=== PATIENT | male | born 1940 | race Caucasian/White ===

== ENCOUNTER → 2018-05-28 | Outpatient (CLI) | payer MEDICARE ==
--- NOTE | 2018-05-28 23:29 | MR ---
EXAMINATION TYPE: MR brain wo con DATE OF EXAM: 05/28/2018 COMPARISON: NONE HISTORY: 77-year-old male CVA, memory loss TECHNIQUE: Multiplanar, multisequence images of the brain and brainstem were acquired without IV con trast. Diffusion weighted imaging is performed. FINDINGS: No evidence for acute infarction, hemorrhage, mass, mass effect, midline shift, herniation, effacemen t of basal cisterns, or extra-axial fluid collection. The ventricles and sulci are age-appropriate. Mild to moderate generalized supratentorial volume loss . Major intracranial flow voids are intact. T2/FLAIR weighted sequences show moderate scattered burden of bright white matter change primarily in the subcortical and deep white matter regions of both cerebral hemispheres. There are some focal cor tical based right signal change in the posterior right parietal lobe suggesting an area of gliosis re lating to old cortical infarct or trauma. Midline structures demonstrate normal morphology. The craniocervical junction is normal. There is mild mucosal thickening throughout the paranasal sinuses. Globes are intact. IMPRESSION: 1. Hyut-en-vzoqbjcr cerebral atrophy. There is moderate scattered burden of T2 bright white matter ch ryley, nonspecific, likely relating to changes of chronic small vessel ischemic disease. 2. Small area of gliosis in the posterior right parietal cortex suggesting sequela of prior vascular or traumatic insult. 3. Mild chronic pansinus disease.
== END | disposition home or self-care (01) ==
LOC: RADMRIMAIN 12:22
PROVIDERS: ATTEND Psychiatry & Neurology Neurology
DX: G31.9 Degenerative disease of nervous system, unspecified (principal); R90.82 White matter disease, unspecified; G93.89 Other specified disorders of brain
CPT/HCPCS: 70551

== ENCOUNTER → 2018-06-21 | Outpatient (CLI) | payer MEDICARE ==
--- NOTE | 2018-06-23 11:36 | CT ---
EXAMINATION TYPE: CT angio head neck DATE OF EXAM: 06/21/2018 HISTORY: Memory loss and occasional confusion COMPARISON: None CT DLP: 333.7 mGycm. Automated Exposure Control for Dose Reduction was Utilized. TECHNIQUE: CTA scan of the neck is performed with IV Contrast, patient injected with 65 mL of Isovue 370, axial images are obtained, coronal and sagittal reformatted images are reviewed. Three-D recons tructed images are created on an independent workstation and reviewed. FINDINGS: Right carotid artery: There is mild atherosclerotic plaque at the origin of the common root tid artery. There is mild atherosclerotic plaque involving the carotid bifurcation and proximal right ICA. No significant stenosis. Left carotid artery: Carotid bifurcation is patent with no significant plaque or stenosis. There is mild atherosclerotic plaque of the visualized portions of the aorta. Hypertrophic and degenerative change of the vertebral column. Vertebral arteries are patent and fairly symmetric in size. Changes of chronic sinusitis noted. Intracranial vasculature is patent. No sizable aneurysm or vascular malformation. There is generalized degenerative change with nonspecific white matter changes most typical remote mi crovascular ischemia. IMPRESSION: 1. No significant hemodynamic stenosis of the carotid bifurcations. 2. No sizable aneurysm. 3. Degenerative and nonspecific white matter changes most typical remote microvascular ischemia.
== END | disposition home or self-care (01) ==
LOC: RADCTMAIN 15:28
PROVIDERS: ATTEND Psychiatry & Neurology Neurology
DX: R90.82 White matter disease, unspecified (principal)
CPT/HCPCS: 82565; 84520; 70496; 70498; Q9967

== ENCOUNTER → 2019-02-06 | Outpatient (CLI) | payer MEDICARE ==
[2019-02-06 18:40] LABS: Anion Gap 6.8 mmol/L (4.00-12.00); Calcium 10.2 mg/dL (8.7-10.3); Carbon Dioxide 28.2 mmol/L (21.6-31.8); Potassium 4.2 mmol/L (3.5-5.5)
[2019-02-06 18:47] LABS: T4, Free (Free Thyroxine) 1.3 ng/dL (0.80-1.80)
[2019-02-07 12:49] LABS: Lyme IgG/IgM 0.07 Index
== END | disposition home or self-care (01) ==
LOC: LABWHC1 12:57
PROVIDERS: ATTEND Psychiatry & Neurology Neurology
DX: R41.3 Other amnesia (principal)
CPT/HCPCS: 36415; 80048; 82607; 82747; 84439; 84443; 85652; 86618

== ENCOUNTER 2019-05-21 12:26 | Emergency (ER) | payer MEDICARE ==
[2019-05-21] MEDS ORDERED: SODIUM CHLORIDE 0.9% 1,000 ML IV ONE (12:41)
--- NOTE | 2019-05-21 12:44 | ED ---
Altered Mental Status HPI - General Chief Complaint: Altered Mental Status Stated Complaint: Confusion Time Seen by Provider: 05/21/19 12:41 Source: patient, family Mode of arrival: ambulatory Limitations: no limitations - Related Data Home Medications Medication Instructions Recorded Confirmed Atorvastatin [Lipitor] 40 mg PO HS 05/21/19 05/21/19 Fluticasone Nasal [place] [Flonase 1 spr EA NOSTRIL DAILY 05/21/19 05/21/19 Nasal [place]] Fluticasone Propionate [Flovent 2 puff INHALATION RT-BID 05/21/19 05/21/19 Hfa 44 mcg] Losartan Potassium 50 mg PO DAILY 05/21/19 05/21/19 Metoprolol Succinate [Toprol XL] 25 mg PO HS 05/21/19 05/21/19 [employer] Fatty Acids/Fish Oil [Fish 1 cap PO DAILY 05/21/19 05/21/19 Oil 1,000 mg Softgel] Warfarin [Coumadin] 1.25 mg PO SUTUWEFRSA 05/21/19 05/21/19 Allergies Allergy/AdvReac Type Severity Reaction Status Date / Time No Known Allergies Allergy Verified 05/21/19 13:45 Review of Systems ROS Statement: Those systems with pertinent positive or pertinent negative responses have been documented in the HPI. ROS Other: All systems not noted in ROS Statement are negative. Past Medical History Past Medical History: CVA/TIA, Hypertension, Myocardial Infarction (ND) Additional Past Medical History / Comment(s): Renal function tests. TIA's History of Any Multi-Drug Resistant Organisms: None Reported Past Surgical History: Heart Catheterization With Stent, Orthopedic Surgery Additional Past Surgical History / Comment(s): Stent 2001, cardioversion 2009 Past Psychological History: No Psychological Hx Reported Smoking Status: Never smoker Past Alcohol Use History: Rare Past Drug Use History: None Reported General Exam Limitations: no limitations Course Vital Signs 05/21/19 05/21/19 12:30 12:45 Temperature 97.8 F 98.6 F Pulse Rate 67 68 Respiratory 19 18 Rate Blood Pressure 138/94 128/78 O2 Sat by Pulse 98 98 Oximetry - Reevaluation(s) Reevaluation #1: 05/21/19 14:59medical record is reviewed Reevaluation #2: 05/21/19 14:59 patient has resolution of symptoms Medical Decision Making - Medical Decision Making 78 male to the ED for evaluation of short term memory loss, history of TIA, symptoms improved currently so now with recurrent TIA, will be given aspirin and folow with cardiologt and neurology - Lab Data Result diagrams: 05/21/19 12:45 05/21/19 12:45 Lab Results 05/21/19 05/21/19 05/21/19 Range/Units 12:45 12:45 12:45 WBC 7.3 (3.8-10.6) k/uL RBC 4.97 (4.30-5.90) m/uL Hgb 16.4 (13.0-17.5) gm/dL Hct 49.8 (39.0-53.0) % MCV 100.2 H (80.0-100.0) fL MCH 33.0 (25.0-35.0) pg MCHC 32.9 (31.0-37.0) g/dL RDW 13.8 (11.5-15.5) % Plt Count 185 (150-450) k/uL Neutrophils % 68 % Lymphocytes % 16 % Monocytes % 9 % Eosinophils % 4 % Basophils % 1 % Neutrophils # 4.9 (1.3-7.7) k/uL Lymphocytes # 1.1 (1.0-4.8) k/uL Monocytes # 0.7 (0-1.0) k/uL Eosinophils # 0.3 (0-0.7) k/uL Basophils # 0.1 (0-0.2) k/uL Macrocytosis Slight PT 13.6 H (9.0-12.0) sec INR 1.3 H (<1.2) APTT 27.5 (22.0-30.0) sec Sodium 139 (137-145) mmol/L Potassium 4.7 (3.5-5.1) mmol/L Chloride 106 (98-107) mmol/L Carbon Dioxide 21 L (22-30) mmol/L Anion Gap 12 mmol/L BUN 17 (9-20) mg/dL Creatinine 0.96 (0.66-1.25) mg/dL Est GFR (CKD-EPI)AfAm 88 (>60 ml/min/1.73 sqM) Est GFR (CKD-EPI)NonAf 77 (>60 ml/min/1.73 sqM) Glucose 95 (74-99) mg/dL POC Glucose (mg/dL) (75-99) mg/dL POC Glu Tobacco Grader ID Calcium 9.7 (8.4-10.2) mg/dL Phosphorus 3.7 (2.5-4.5) mg/dL Magnesium 2.0 (1.6-2.3) mg/dL Total Bilirubin 1.5 H (0.2-1.3) mg/dL AST 59 (17-59) U/L ALT 50 (21-72) U/L Alkaline Phosphatase 67 (38-126) U/L Creatine Kinase 259 H (55-170) U/L Troponin I (0.000-0.034) ng/mL Total Protein 7.2 (6.3-8.2) g/dL Albumin 4.2 (3.5-5.0) g/dL Urine Color Urine Appearance (Clear) Urine pH (5.0-8.0) Ur Specific [place] (1.001-1.035) Urine Protein (Negative) Urine Glucose (UA) (Negative) Urine Ketones (Negative) Urine Blood (Negative) Urine Nitrite (Negative) Urine Bilirubin (Negative) Urine Urobilinogen (<2.0) mg/dL Ur Leukocyte Esterase (Negative) Urine Opiates Screen (NotDetected) Ur Oxycodone Screen (NotDetected) Urine Methadone Screen (NotDetected) Ur Propoxyphene Screen (NotDetected) Ur Barbiturates Screen (NotDetected) U Tricyclic Antidepress (NotDetected) Ur Phencyclidine Scrn (NotDetected) Ur Amphetamines Screen (NotDetected) U Methamphetamines Scrn (NotDetected) U Benzodiazepines Scrn (NotDetected) Urine Cocaine Screen (NotDetected) U Marijuana (THC) Screen (NotDetected) 05/21/19 05/21/19 05/21/19 Range/Units 12:45 12:49 14:00 WBC (3.8-10.6) k/uL RBC (4.30-5.90) m/uL Hgb (13.0-17.5) gm/dL Hct (39.0-53.0) % MCV (80.0-100.0) fL MCH (25.0-35.0) pg MCHC (31.0-37.0) g/dL RDW (11.5-15.5) % Plt Count (150-450) k/uL Neutrophils % % Lymphocytes % % Monocytes % % Eosinophils % % Basophils % % Neutrophils # (1.3-7.7) k/uL Lymphocytes # (1.0-4.8) k/uL Monocytes # (0-1.0) k/uL Eosinophils # (0-0.7) k/uL Basophils # (0-0.2) k/uL Macrocytosis PT (9.0-12.0) sec INR (<1.2) APTT (22.0-30.0) sec Sodium (137-145) mmol/L Potassium (3.5-5.1) mmol/L Chloride (98-107) mmol/L Carbon Dioxide (22-30) mmol/L Anion Gap mmol/L BUN (9-20) mg/dL Creatinine (0.66-1.25) mg/dL Est GFR (CKD-EPI)AfAm (>60 ml/min/1.73 sqM) Est GFR (CKD-EPI)NonAf (>60 ml/min/1.73 sqM) Glucose (74-99) mg/dL POC Glucose (mg/dL) 91 (75-99) mg/dL POC Glu Tobacco Grader ID Wilbert Barrios Calcium (8.4-10.2) mg/dL Phosphorus (2.5-4.5) mg/dL Magnesium (1.6-2.3) mg/dL Total Bilirubin (0.2-1.3) mg/dL AST (17-59) U/L ALT (21-72) U/L Alkaline Phosphatase (38-126) U/L Creatine Kinase (55-170) U/L Troponin I <0.012 (0.000-0.034) ng/mL Total Protein (6.3-8.2) g/dL Albumin (3.5-5.0) g/dL Urine Color Yellow Urine Appearance Clear (Clear) Urine pH 5.5 (5.0-8.0) Ur Specific [place] 1.023 (1.001-1.035) Urine Protein Negative (Negative) Urine Glucose (UA) Negative (Negative) Urine Ketones Negative (Negative) Urine Blood Negative (Negative) Urine Nitrite Negative (Negative) Urine Bilirubin Negative (Negative) Urine Urobilinogen <2.0 (<2.0) mg/dL Ur Leukocyte Esterase Negative (Negative) Urine Opiates Screen Not Detected (NotDetected) Ur Oxycodone Screen Not Detected (NotDetected) Urine Methadone Screen Not Detected (NotDetected) Ur Propoxyphene Screen Not Detected (NotDetected) Ur Barbiturates Screen Not Detected (NotDetected) U Tricyclic Antidepress Not Detected (NotDetected) Ur Phencyclidine Scrn Not Detected (NotDetected) Ur Amphetamines Screen Not Detected (NotDetected) U Methamphetamines Scrn Not Detected (NotDetected) U Benzodiazepines Scrn Not Detected (NotDetected) Urine Cocaine Screen Not Detected (NotDetected) U Marijuana (THC) Screen Not Detected (NotDetected) - EKG Data -: EKG Interpreted by Me (EKG shows A. fib rate of 70, QRS 80, QTC 436) - Radiology Data Radiology results: report reviewed (CT brain is negative for acute disaes), image reviewed Disposition Clinical Impression: TIA (transient ischemic attack) Disposition: HOME SELF-CARE Instructions (If sedation given, give patient instructions): Transient Ischemic Attack (ED) Is patient prescribed a controlled substance at d/c from ED?: No Referrals: Regan Cruz MD [Primary Care Provider] - 1-2 days
[2019-05-21 12:52] LABS: Glucose,Whole Blood 91 mg/dL (75-99)
[2019-05-21 13:15] LABS: Basophils # (A) 0.1 k/uL (0-0.2); Basophils % (A) 1 %; Eosinophils # (A) 0.3 k/uL (0-0.7); Eosinophils % (A) 4 %; HCT 49.8 % (39.0-53.0); HGB 16.4 gm/dL (13.0-17.5); Lymphocytes # (A) 1.1 k/uL (1.0-4.8); Lymphocytes % (A) 16 %; MCHC 32.9 g/dL (31.0-37.0); MCV 100.2 fL (80.0-100.0); Macrocytosis Slight; Mean Platelet Volume 8.1; Monocytes # (A) 0.7 k/uL (0-1.0); Monocytes % (A) 9 %; Neutrophils # (A) 4.9 k/uL (1.3-7.7); Neutrophils % (A) 68 %; Platelet Count 185 k/uL (150-450); RBC 4.97 m/uL (4.30-5.90); RDW 13.8 % (11.5-15.5); WBC 7.3 k/uL (3.8-10.6)
[2019-05-21 13:24] LABS: INR 1.3 (<1.2); Partial Thromboplastin Time 27.5 sec (22.0-30.0); Prothrombin Time 13.6 sec (9.0-12.0)
--- NOTE | 2019-05-21 13:29 | XR ---
EXAMINATION TYPE: XR chest 2V DATE OF EXAM: 05/21/2019 COMPARISON: 08/16/2010 INDICATION: Altered mental status history of heart attack TECHNIQUE: Frontal and lateral views of the chest are obtained. FINDINGS: The heart size is normal. The pulmonary vasculature is normal. The lungs are clear. IMPRESSION: 1. No acute pulmonary process.
[2019-05-21 13:34] LABS: Albumin 4.2 g/dL (3.5-5.0); Calcium 9.7 mg/dL (8.4-10.2); Phosphorus 3.7 mg/dL (2.5-4.5); Total Bilirubin 1.5 mg/dL (0.2-1.3); Total Protein 7.2 g/dL (6.3-8.2)
[2019-05-21 13:36] LABS: Potassium 4.7 mmol/L (3.5-5.1)
--- NOTE | 2019-05-21 13:37 | CT ---
EXAMINATION TYPE: CT brain wo con DATE OF EXAM: 05/21/2019 COMPARISON: None HISTORY: confusion CT DLP: 1099.[address] of the brain was performed. The ventricles, basal cisterns and sulci overlying the cerebral convexities demonstrate mild enlargem ent. There is no evidence for intracranial hemorrhage or sulcal effacement. There is decreased attenuation about the periventricular white matter and deep white matter of both c erebral hemispheres, compatible with chronic small vessel ischemia. Differential diagnosis does inclu de demyelination. No mass effects are seen.No midline shift. Osseous calvarium is intact. If symptoms persist consider MRI. IMPRESSION: 1. Age related atrophic and chronic small vessel ischemic change without acute intracranial process s een at this time.
[2019-05-21 14:14] LABS: Appearance,Urine Clear (Clear); Bilirubin,Urine Negative (Negative); Blood,Urine Negative (Negative); Color,Urine Yellow; Glucose,Urine (UA) Negative (Negative); Ketones,Urine Negative (Negative); Leukocyte Esterase,Urine Negative (Negative); Nitrite,Urine Negative (Negative); PH, Urine 5.5 (5.0-8.0); Protein,Urine Negative (Negative); Specific Gravity,Urine 1.023 (1.001-1.035); Urobilinogen,Urine <2.0 mg/dL (<2.0)
[2019-05-21 14:21] LABS: Amphetamine Screen,Urine Not Detected (NotDetected); Barbiturate Screen,Urine Not Detected (NotDetected); Benzodiazepines Screen,Urine Not Detected (NotDetected); Cocaine Screen,Urine Not Detected (NotDetected); Methadone Screen, Urine Not Detected (NotDetected); Opiate Screen,Urine Not Detected (NotDetected); Oxycodone Screen, Urine Not Detected (NotDetected); Phencyclidine Screen,Urine Not Detected (NotDetected); Tricyclic Antidepressant,Urine Not Detected (NotDetected); Urn Cannabinoid Scrn Not Detected (NotDetected)
[2019-05-21 15:33] VITALS: BP 133/80; PULSE 62; RESP 18; TEMP 98
--- NOTE | 2019-05-27 16:21 | ED ---
Altered Mental Status HPI - General Chief Complaint: Altered Mental Status Stated Complaint: Confusion Time Seen by Provider: 05/21/19 12:41 Source: patient, family, RN notes reviewed, old records reviewed Mode of arrival: ambulatory Limitations: no limitations - History of Present Illness Initial Comments: This is addendum regarding incomplete prior note This is a 78-year-old male the ER for evaluation. Patient has history of TIA and coming in with likely recurrent TIA. Patient has some significant short- term memory loss following golfing today. Patient members none of his golf round. He also got lost on the way home. No history of dementia. No trauma. No recent travel history no sick contacts no other significant symptoms. Patient currently is asymptomatic denies neurological deficit no weakness no sensation loss. History of exact same symptoms in the past MD Complaint: altered mental status, confusion (Memory loss short-term) -: days(s) Severity: moderate Consistency of Symptoms: unknown (Improving currently) Associated Symptoms: denies other symptoms - Related Data Home Medications Medication Instructions Recorded Confirmed Atorvastatin [Lipitor] 40 mg PO HS 05/21/19 05/21/19 Fluticasone Nasal [place] [Flonase 1 spr EA NOSTRIL DAILY 05/21/19 05/21/19 Nasal [place]] Fluticasone Propionate [Flovent 2 puff INHALATION RT-BID 05/21/19 05/21/19 Hfa 44 mcg] Losartan Potassium 50 mg PO DAILY 05/21/19 05/21/19 Metoprolol Succinate [Toprol XL] 25 mg PO HS 05/21/19 05/21/19 [place]-3 Fatty Acids/Fish Oil [Fish 1 cap PO DAILY 05/21/19 05/21/19 Oil 1,000 mg Softgel] Warfarin [Coumadin] 1.25 mg PO SUTUWEFRSA 05/21/19 05/21/19 Allergies Allergy/AdvReac Type Severity Reaction Status Date / Time No Known Allergies Allergy Verified 05/21/19 13:45 Review of Systems ROS Statement: Those systems with pertinent positive or pertinent negative responses have been documented in the HPI. ROS Other: All systems not noted in ROS Statement are negative. Past Medical History Past Medical History: CVA/TIA, Hypertension, Myocardial Infarction (ID) Additional Past Medical History / Comment(s): Renal function tests. TIA's History of Any Multi-Drug Resistant Organisms: None Reported Past Surgical History: Heart Catheterization With Stent, Orthopedic Surgery Additional Past Surgical History / Comment(s): Stent 2002, cardioversion 2009 Past Psychological History: No Psychological Hx Reported Smoking Status: Never smoker Past Alcohol Use History: Rare Past Drug Use History: None Reported General Exam - General Exam Comments Initial Comments: NIH of 0 Limitations: no limitations General appearance: alert, in no apparent distress Head exam: Present: atraumatic, normocephalic, normal inspection Eye exam: Present: normal appearance, PERRL, EOMI. Absent: scleral icterus, conjunctival injection, periorbital swelling ENT exam: Present: normal exam, mucous membranes moist Neck exam: Present: normal inspection. Absent: tenderness, meningismus, lymphadenopathy Respiratory exam: Present: normal lung sounds bilaterally. Absent: respiratory distress, wheezes, rales, rhonchi, stridor Cardiovascular Exam: Present: regular rate, normal rhythm, normal heart sounds. Absent: systolic murmur, diastolic murmur, rubs, gallop, clicks GI/Abdominal exam: Present: soft, normal bowel sounds. Absent: distended, tenderness, guarding, rebound, rigid Extremities exam: Present: normal inspection, full ROM, normal capillary refill. Absent: tenderness, pedal edema, joint swelling, calf tenderness Back exam: Present: normal inspection Neurological exam: Present: alert, oriented X3, CN II-XII intact Psychiatric exam: Present: normal affect, normal mood Skin exam: Present: warm, dry, intact, normal color. Absent: rash Course Vital Signs 05/21/19 05/21/19 05/21/19 12:30 12:45 13:45 Temperature 97.8 F 98.6 F 98.2 F Pulse Rate 67 68 65 Respiratory 19 18 18 Rate Blood Pressure 138/94 128/78 136/78 O2 Sat by Pulse 98 98 98 Oximetry 05/21/19 05/21/19 14:45 15:20 Temperature 98.2 F 98.0 F Pulse Rate 61 62 Respiratory 16 18 Rate Blood Pressure 130/80 133/80 O2 Sat by Pulse 98 98 Oximetry Medical Decision Making - Medical Decision Making 78 male to be admitted for evaluation, patient refusing to be admitted for short-term memory loss and JOE he states his memory is working out agrees will follow-up with his neurologist - Lab Data Result diagrams: 05/21/19 12:45 05/21/19 12:45 Lab Results 05/21/19 05/21/19 05/21/19 Range/Units 12:45 12:45 12:45 WBC 7.3 (3.8-10.6) k/uL RBC 4.97 (4.30-5.90) m/uL Hgb 16.4 (13.0-17.5) gm/dL Hct 49.8 (39.0-53.0) % MCV 100.2 H (80.0-100.0) fL MCH 33.0 (25.0-35.0) pg MCHC 32.9 (31.0-37.0) g/dL RDW 13.8 (11.5-15.5) % Plt Count 185 (150-450) k/uL Neutrophils % 68 % Lymphocytes % 16 % Monocytes % 9 % Eosinophils % 4 % Basophils % 1 % Neutrophils # 4.9 (1.3-7.7) k/uL Lymphocytes # 1.1 (1.0-4.8) k/uL Monocytes # 0.7 (0-1.0) k/uL Eosinophils # 0.3 (0-0.7) k/uL Basophils # 0.1 (0-0.2) k/uL Macrocytosis Slight PT 13.6 H (9.0-12.0) sec INR 1.3 H (<1.2) APTT 27.5 (22.0-30.0) sec Sodium 139 (137-145) mmol/L Potassium 4.7 (3.5-5.1) mmol/L Chloride 106 (98-107) mmol/L Carbon Dioxide 21 L (22-30) mmol/L Anion Gap 12 mmol/L BUN 17 (9-20) mg/dL Creatinine 0.96 (0.66-1.25) mg/dL Est GFR (CKD-EPI)AfAm 88 (>60 ml/min/1.73 sqM) Est GFR (CKD-EPI)NonAf 77 (>60 ml/min/1.73 sqM) Glucose 95 (74-99) mg/dL POC Glucose (mg/dL) (75-99) mg/dL POC Glu Principal Clerk Typist ID Calcium 9.7 (8.4-10.2) mg/dL Phosphorus 3.7 (2.5-4.5) mg/dL Magnesium 2.0 (1.6-2.3) mg/dL Total Bilirubin 1.5 H (0.2-1.3) mg/dL AST 59 (17-59) U/L ALT 50 (21-72) U/L Alkaline Phosphatase 67 (38-126) U/L Creatine Kinase 259 H (55-170) U/L Troponin I (0.000-0.034) ng/mL Total Protein 7.2 (6.3-8.2) g/dL Albumin 4.2 (3.5-5.0) g/dL Urine Color Urine Appearance (Clear) Urine pH (5.0-8.0) Ur Specific [place] (1.001-1.035) Urine Protein (Negative) Urine Glucose (UA) (Negative) Urine Ketones (Negative) Urine Blood (Negative) Urine Nitrite (Negative) Urine Bilirubin (Negative) Urine Urobilinogen (<2.0) mg/dL Ur Leukocyte Esterase (Negative) Urine Opiates Screen (NotDetected) Ur Oxycodone Screen (NotDetected) Urine Methadone Screen (NotDetected) Ur Propoxyphene Screen (NotDetected) Ur Barbiturates Screen (NotDetected) U Tricyclic Antidepress (NotDetected) Ur Phencyclidine Scrn (NotDetected) Ur Amphetamines Screen (NotDetected) U Methamphetamines Scrn (NotDetected) U Benzodiazepines Scrn (NotDetected) Urine Cocaine Screen (NotDetected) U Marijuana (THC) Screen (NotDetected) 05/21/19 05/21/19 05/21/19 Range/Units 12:45 12:49 14:00 WBC (3.8-10.6) k/uL RBC (4.30-5.90) m/uL Hgb (13.0-17.5) gm/dL Hct (39.0-53.0) % MCV (80.0-100.0) fL MCH (25.0-35.0) pg MCHC (31.0-37.0) g/dL RDW (11.5-15.5) % Plt Count (150-450) k/uL Neutrophils % % Lymphocytes % % Monocytes % % Eosinophils % % Basophils % % Neutrophils # (1.3-7.7) k/uL Lymphocytes # (1.0-4.8) k/uL Monocytes # (0-1.0) k/uL Eosinophils # (0-0.7) k/uL Basophils # (0-0.2) k/uL Macrocytosis PT (9.0-12.0) sec INR (<1.2) APTT (22.0-30.0) sec Sodium (137-145) mmol/L Potassium (3.5-5.1) mmol/L Chloride (98-107) mmol/L Carbon Dioxide (22-30) mmol/L Anion Gap mmol/L BUN (9-20) mg/dL Creatinine (0.66-1.25) mg/dL Est GFR (CKD-EPI)AfAm (>60 ml/min/1.73 sqM) Est GFR (CKD-EPI)NonAf (>60 ml/min/1.73 sqM) Glucose (74-99) mg/dL POC Glucose (mg/dL) 91 (75-99) mg/dL POC Glu Principal Clerk Typist ID Wilbert Barrios Calcium (8.4-10.2) mg/dL Phosphorus (2.5-4.5) mg/dL Magnesium (1.6-2.3) mg/dL Total Bilirubin (0.2-1.3) mg/dL AST (17-59) U/L ALT (21-72) U/L Alkaline Phosphatase (38-126) U/L Creatine Kinase (55-170) U/L Troponin I <0.012 (0.000-0.034) ng/mL Total Protein (6.3-8.2) g/dL Albumin (3.5-5.0) g/dL Urine Color Yellow Urine Appearance Clear (Clear) Urine pH 5.5 (5.0-8.0) Ur Specific [place] 1.023 (1.001-1.035) Urine Protein Negative (Negative) Urine Glucose (UA) Negative (Negative) Urine Ketones Negative (Negative) Urine Blood Negative (Negative) Urine Nitrite Negative (Negative) Urine Bilirubin Negative (Negative) Urine Urobilinogen <2.0 (<2.0) mg/dL Ur Leukocyte Esterase Negative (Negative) Urine Opiates Screen Not Detected (NotDetected) Ur Oxycodone Screen Not Detected (NotDetected) Urine Methadone Screen Not Detected (NotDetected) Ur Propoxyphene Screen Not Detected (NotDetected) Ur Barbiturates Screen Not Detected (NotDetected) U Tricyclic Antidepress Not Detected (NotDetected) Ur Phencyclidine Scrn Not Detected (NotDetected) Ur Amphetamines Screen Not Detected (NotDetected) U Methamphetamines Scrn Not Detected (NotDetected) U Benzodiazepines Scrn Not Detected (NotDetected) Urine Cocaine Screen Not Detected (NotDetected) U Marijuana (THC) Screen Not Detected (NotDetected) - Radiology Data Radiology results: report reviewed (CT brain negative for acute disease), image reviewed Disposition Clinical Impression: TIA (transient ischemic attack) Disposition: HOME SELF-CARE Instructions (If sedation given, give patient instructions): Transient Ischemic Attack (ED) Is patient prescribed a controlled substance at d/c from ED?: No Referrals: Regan Cruz MD [Primary Care Provider] - 1-2 days
== END 2019-05-21 15:20 | disposition home or self-care (01) ==
LOC: EC 12:26
DX: G45.9 Transient cerebral ischemic attack, unspecified (principal); I10 Essential (primary) hypertension; I25.2 Old myocardial infarction; Z79.01 Long term (current) use of anticoagulants; Z79.899 Other long term (current) drug therapy; Z53.29 Procedure and treatment not carried out because of patient's decision for other reasons; Z95.5 Presence of coronary angioplasty implant and graft
CPT/HCPCS: 36415; 70450; 71046; 80053; 80306; 81003; 82550; 83735; 84100; 84484; 85025; 85610; 85730; 93005; 96360; 96361; 99285

== ENCOUNTER → 2021-07-10 | Outpatient (CLI) | payer MEDICARE ==
--- NOTE | 2021-07-11 03:45 | MR ---
EXAMINATION TYPE: MR brain wo con DATE OF EXAM: 07/10/2021 COMPARISON: 05/28/2018 HISTORY: Memory loss. Multiplanar multiecho imaging of the brain without contrast. There is cerebral cortical atrophy. There is no mass effect nor midline shift. There is no sign of in tracranial hemorrhage. Diffusion images show no evidence of an acute infarct. On the T2 and FLAIR images there are scattered multiple foci of increased signal in the white matter in both cerebral hemispheres mainly at the lewis-white matter junction. These measure millimeters and total number is approximately 25 The brainstem is intact. Corpus callosum is intact. The sella turcica is intact. There is no evidence of orbital mass. There is some mild mucosal thickening in the ethmoid and frontal sinuses. IMPRESSION: White matter signal changes in both cerebral hemispheres consistent with chronic small vessel ischemi a and not a significant progression compared to old exam. Cerebral atrophy. There is improvement in the frontal and ethmoid sinusitis compared to old exam. There is improvement in the maxillary sinusitis.
== END | disposition home or self-care (01) ==
LOC: RADMRIMAIN 12:43
PROVIDERS: ATTEND Psychiatry & Neurology Neurology
DX: I67.82 Cerebral ischemia (principal); J32.0 Chronic maxillary sinusitis
CPT/HCPCS: 70551

== ENCOUNTER 2022-03-31 10:42 | Emergency (ER) | payer MEDICARE ==
[2022-03-31 10:54] VITALS: RESP 18
[2022-03-31] MEDS ORDERED: HUMAN PROTHROMBIN COMPLX 500 UNIT/16 ML VIAL IV ONE (11:00)
--- NOTE | 2022-03-31 12:32 | ED ---
General Adult HPI - General Source: patient, family Mode of arrival: wheelchair Limitations: no limitations <Dominique Warren - Last Filed: 03/31/22 17:46> <WittCarlose - Last Filed: 04/01/22 14:46> - General Chief complaint: Dizziness Stated complaint: poss TIA yesterday - History of Present Illness Initial comments: Patient is an 81-year-old male presents to the emergency room with his . His reports that the patient was acting very strangely yesterday consequently she called EMS who advised that the patient should go to the emergency room however he was adamant that he did not want to go to the emergency room. His reports that he slept all day long and this morning he was still not back to what she feels is his baseline which is slightly confused but overall alert. She reports that he is not following his his normal routine and does not know if that is affecting his confusion. 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 Christian for evaluation of the symptoms. He has also had multiple CT scans and MRIs over the last few years to monitor for metastatic disease as he has a history of lung cancer. Initially this morning he was complaining of some dizziness and wobbliness in his legs however at time of presentation he denied any dizziness and was able to stand for orthostatic blood pressures in the triage area without assistance. His states that due to his altered mental status and sleeping all day yesterday he has not taking any medications in approximately 48-72 hours. He typically follows with Dr. Christian in regards to Coumadin dosing and reports that his last level was therapeutic 2 weeks ago. He is on Coumadin for atrial fibrillation. He also has a past medical history significant for hypertension, coronary artery disease, myocardial infarction along with the as stated TIAs and lung cancer. His denies any known trauma or falls prior to his last known normal activity which was Sunday evening approximately 48 hours ago. (Dominique Warren) - Related Data Home Medications Medication Instructions Recorded Confirmed Atorvastatin [Lipitor] 40 mg PO HS 05/21/19 03/31/22 Aspirin EC [Ecotrin Low Dose] 81 mg PO DAILY 03/31/22 03/31/22 Losartan Potassium [Cozaar] 100 mg PO DAILY 03/31/22 03/31/22 Metoprolol Tartrate [Lopressor] 25 mg PO BID 03/31/22 03/31/22 Sildenafil Citrate 50 mg PO DAILY PRN 03/31/22 03/31/22 Warfarin Sodium 2.5 mg PO TUSA 03/31/22 03/31/22 Warfarin [Coumadin] 1.25 mg PO SUMOWETHFR 03/31/22 03/31/22 levETIRAcetam [Keppra] 500 mg PO Q12HR 03/31/22 03/31/22 Allergies Allergy/AdvReac Type Severity Reaction Status Date / Time No Known Allergies Allergy Verified 03/31/22 10:54 Review of Systems ROS Other: All systems not noted in ROS Statement are negative. <Dominique Warren - Last Filed: 03/31/22 17:46> ROS Other: All systems not noted in ROS Statement are negative. <Dwight Witt - Last Filed: 04/01/22 14:46> ROS Statement: Those systems with pertinent positive or pertinent negative responses have been documented in the HPI. Past Medical History Past Medical History: Atrial Flutter, CVA/TIA, Hypertension, Myocardial Infarction ([place]) Additional Past Medical History / Comment(s): Renal function tests. TIA's History of Any Multi-Drug Resistant Organisms: None Reported Past Surgical History: Heart Catheterization With Stent, Orthopedic Surgery Additional Past Surgical History / Comment(s): Stent 2001, cardioversion 2009 Past Psychological History: No Psychological Hx Reported Smoking Status: Never smoker Past Alcohol Use History: Rare Past Drug Use History: None Reported <Dominique Warren - Last Filed: 03/31/22 17:46> General Exam Limitations: no limitations General appearance: alert, in no apparent distress Head exam: Present: atraumatic, normocephalic Eye exam: Present: normal appearance, PERRL, EOMI. Absent: scleral icterus, conjunctival injection, nystagmus, periorbital swelling Pupils: Present: normal accommodation ENT exam: Present: normal exam, mucous membranes moist, TM's normal bilaterally, normal external ear exam Neck exam: Present: normal inspection. Absent: tenderness, meningismus, lymphadenopathy Respiratory exam: Present: normal lung sounds bilaterally. Absent: respiratory distress, wheezes, rales, rhonchi, stridor Cardiovascular Exam: Present: regular rate, irregular rhythm. Absent: systolic murmur, diastolic murmur, rubs GI/Abdominal exam: Present: soft, normal bowel sounds. Absent: distended, tenderness, guarding, rebound, rigid Extremities exam: Absent: tenderness, pedal edema, joint swelling, calf tend erness Neurological exam: Present: alert Expanded Neurological exam: Present: inattentive Patient oriented to: Present: person, place. Absent: time Speech: Present: fluid speech Cranial nerves: EOM's Intact: Normal, Gag Reflex: Normal, Tongue Deviation: Normal, Nystagmus: Normal, Facial Sensation: Normal, Facial Palsy with Forehead Movement: Normal, Facial Palsy without Forehead Movement: Normal Cerebellar function: Finger to Nose: Normal, Heel to [place]: Normal Upper motor neuron: [place] Neglect: Normal, Pronator Drift: Normal Motor strength exam: RUE: 5, LUE: 5, RLE: 5, LLE: 5 Eye Response: (4) open spontaneously Motor Response: (6) obeys commands Verbal Response: (4) confused conversation [place] Total: 14 Psychiatric exam: Present: normal affect, normal mood Skin exam: Present: warm, dry, intact, normal color. Absent: rash <Dominique Warren - Last Filed: 03/31/22 17:46> Course Vital Signs 03/31/22 03/31/22 03/31/22 10:43 12:42 13:45 Temperature 98.4 F 98.0 F Pulse Rate 93 83 Pulse Rate [ 76 Right Sitting] Pulse Rate [ 86 Right Standing] Respiratory 18 18 Rate Blood Pressure 136/95 149/109 Blood Pressure 144/90 [Right Arm Sitting] Blood Pressure 145/89 [Right Arm Standing] O2 Sat by Pulse 98 99 Oximetry 03/31/22 03/31/22 03/31/22 14:00 14:15 14:30 Temperature 98.0 F Pulse Rate 84 80 89 Pulse Rate [ Right Sitting] Pulse Rate [ Right Standing] Respiratory 18 18 18 Rate Blood Pressure 146/101 151/100 150/99 Blood Pressure [Right Arm Sitting] Blood Pressure [Right Arm Standing] O2 Sat by Pulse 99 97 96 Oximetry 03/31/22 03/31/22 03/31/22 14:45 15:00 15:45 Temperature Pulse Rate 95 74 79 Pulse Rate [ Right Sitting] Pulse Rate [ Right Standing] Respiratory 18 16 16 Rate Blood Pressure 130/91 137/97 134/100 Blood Pressure [Right Arm Sitting] Blood Pressure [Right Arm Standing] O2 Sat by Pulse 96 97 96 Oximetry 03/31/22 03/31/22 03/31/22 16:00 16:15 16:30 Temperature Pulse Rate 89 85 80 Pulse Rate [ Right Sitting] Pulse Rate [ Right Standing] Respiratory 18 18 16 Rate Blood Pressure 120/95 128/92 124/91 Blood Pressure [Right Arm Sitting] Blood Pressure [Right Arm Standing] O2 Sat by Pulse 97 98 96 Oximetry 03/31/22 03/31/22 03/31/22 16:45 17:00 17:15 Temperature Pulse Rate 99 98 89 Pulse Rate [ Right Sitting] Pulse Rate [ Right Standing] Respiratory 18 16 16 Rate Blood Pressure 116/85 125/78 121/88 Blood Pressure [Right Arm Sitting] Blood Pressure [Right Arm Standing] O2 Sat by Pulse 95 97 96 Oximetry 03/31/22 03/31/22 17:30 17:45 Temperature Pulse Rate 98 97 Pulse Rate [ Right Sitting] Pulse Rate [ Right Standing] Respiratory 18 18 Rate Blood Pressure 130/94 129/80 Blood Pressure [Right Arm Sitting] Blood Pressure [Right Arm Standing] O2 Sat by Pulse 97 96 Oximetry EKG Findings - EKG Comments: EKG Findings:: Atrial fibrillation, ventricular rate 75 SD interval *, QRS duration 97 ms, QT/QTC 365/394 ms, PRT axes *, -14, 34 <Dominique Warren - Last Filed: 03/31/22 17:46> Medical Decision Making - Lab Data Result diagrams: 03/31/22 12:38 03/31/22 12:38 - Radiology Data Radiology results: report reviewed, image reviewed <Dominique Warren - Last Filed: 03/31/22 17:46> - Lab Data Result diagrams: 03/31/22 12:38 03/31/22 12:38 <Dwight Witt - Last Filed: 04/01/22 14:46> - Medical Decision Making Due to 's report of not at baseline mental status CT the brain ordered along with CMP CBC and urinalysis to evaluate for any infectious etiology or electrolyte abnormality. CT of the brain without contrast showed large subarachnoid bleed. Case discussed with radiologist and Dr. Witt. CTA ordered. Neurological exam remains unchanged. Patient and aware of findings. Awaiting interpretation by the interventional neurologist for transfer. Patient on warfarin for atrial fibrillation with last known INR at 2.5. FFP and vitamin K ordered along with clotting times. 10 mg of Decadron IV given. Blood pressure trending upward. Will start Cardene drip for titration to keep systolic BP less than 160 and diastolic BP less than 100. Dr. Walden at [facility] accepting neurologist attempting to coordinate ER to inpatient admission. Kcentra and keppra order to be given. Patient continues to rest comfortably without any neurological changes. Will continue to monitor closely No beds for admission available at [facility] plan for transfer ER to ER. Patient continued to remain hemodynamically stable without any neurological changes with the exception of his altered mental status as noted on initial intake. He is resting comfortably to be taken by ambulance to [facility] for ER to ER transfer. Dr. Witt and Dr. jamee Damon both involved with case. (Dominique Warren) - Lab Data Lab Results 03/31/22 03/31/22 03/31/22 Range/Units 11:00 12:38 12:38 WBC 11.4 H (3.8-10.6) k/uL RBC 5.02 (4.30-5.90) m/uL Hgb 16.9 (13.0-17.5) gm/dL Hct 50.1 (39.0-53.0) % MCV 99.7 (80.0-100.0) fL MCH 33.5 (25.0-35.0) pg MCHC 33.7 (31.0-37.0) g/dL RDW 12.6 (11.5-15.5) % Plt Count 167 (150-450) k/uL MPV 7.6 Neutrophils % 78 % Lymphocytes % 12 % Monocytes % 7 % Eosinophils % 1 % Basophils % 1 % Neutrophils # 8.9 H (1.3-7.7) k/uL Lymphocytes # 1.4 (1.0-4.8) k/uL Monocytes # 0.8 (0-1.0) k/uL Eosinophils # 0.2 (0-0.7) k/uL Basophils # 0.1 (0-0.2) k/uL PT (9.0-12.0) sec INR (<1.2) APTT (22.0-30.0) sec Sodium 138 (137-145) mmol/L Potassium 4.6 (3.5-5.1) mmol/L Chloride 102 (98-107) mmol/L Carbon Dioxide 28 (22-30) mmol/L Anion Gap 8 mmol/L BUN 18 (9-20) mg/dL Creatinine 0.96 (0.66-1.25) mg/dL Est GFR (CKD-EPI)AfAm 87 (>60 ml/min/1.73 sqM) Est GFR (CKD-EPI)NonAf 75 (>60 ml/min/1.73 sqM) Glucose 112 H (74-99) mg/dL Calcium 9.7 (8.4-10.2) mg/dL Urine Color Yellow Urine Appearance Clear (Clear) Urine pH 5.5 (5.0-8.0) Ur Specific [place] 1.027 (1.001-1.035) Urine Protein Trace H (Negative) Urine Glucose (UA) Trace H (Negative) Urine Ketones Negative (Negative) Urine Blood Moderate H (Negative) Urine Nitrite Negative (Negative) Urine Bilirubin Negative (Negative) Urine Urobilinogen <2.0 (<2.0) mg/dL Ur Leukocyte Esterase Negative (Negative) Urine RBC 4 (0-5) /hpf Urine WBC 2 (0-5) /hpf Urine Mucus Few H (None) /hpf Blood Type Blood Type Confirm Blood Type Recheck Bld Type Recheck Status Antibody Screen Spec Expiration Date 03/31/22 03/31/22 03/31/22 Range/Units 13:55 13:57 14:00 WBC (3.8-10.6) k/uL RBC (4.30-5.90) m/uL Hgb (13.0-17.5) gm/dL Hct (39.0-53.0) % MCV (80.0-100.0) fL MCH (25.0-35.0) pg MCHC (31.0-37.0) g/dL RDW (11.5-15.5) % Plt Count (150-450) k/uL MPV Neutrophils % % Lymphocytes % % Monocytes % % Eosinophils % % Basophils % % Neutrophils # (1.3-7.7) k/uL Lymphocytes # (1.0-4.8) k/uL Monocytes # (0-1.0) k/uL Eosinophils # (0-0.7) k/uL Basophils # (0-0.2) k/uL PT 24.2 H (9.0-12.0) sec INR 2.4 H (<1.2) APTT 34.7 H (22.0-30.0) sec Sodium (137-145) mmol/L Potassium (3.5-5.1) mmol/L Chloride (98-107) mmol/L Carbon Dioxide (22-30) mmol/L Anion Gap mmol/L BUN (9-20) mg/dL Creatinine (0.66-1.25) mg/dL Est GFR (CKD-EPI)AfAm (>60 ml/min/1.73 sqM) Est GFR (CKD-EPI)NonAf (>60 ml/min/1.73 sqM) Glucose (74-99) mg/dL Calcium (8.4-10.2) mg/dL Urine Color Urine Appearance (Clear) Urine pH (5.0-8.0) Ur Specific [place] (1.001-1.035) Urine Protein (Negative) Urine Glucose (UA) (Negative) Urine Ketones (Negative) Urine Blood (Negative) Urine Nitrite (Negative) Urine Bilirubin (Negative) Urine Urobilinogen (<2.0) mg/dL Ur Leukocyte Esterase (Negative) Urine RBC (0-5) /hpf Urine WBC (0-5) /hpf Urine Mucus (None) /hpf Blood Type A Positive Blood Type Confirm A Positive Blood Type Recheck No Previous Record Bld Type Recheck Status CABO Indicated Antibody Screen NEGATIVE Spec Expiration Date 04/03/20222354 - Radiology Data CT brain without contrast impression: 1. Large medial right frontal lobe intraparenchymal hematoma measuring up to 5.6 cm. Surrounding vasogenic edema and focal mass effect onto the anterior falx resulting in a 1.1 cm a focal leftward midline shift and associated subfalcine herniation. 2. Mass effect effacing the frontal horn of the right lateral ventricle. 3. Additional subarachnoid hemorrhage along the falx and some intraventricular extension into the third ventricle, fourth ventricle and layering in the occipital horn on the right. CT angiogram neck impression 1. Brain: scattered mild atherosclerotic narrowing within the vertebral and basilar arteries. There is a leftward deviation of A2 and A3 segments of the anterior cerebral artery due to the patient's large right frontal lobe hematoma however no significant stenosis or aneurysm change identified. 2. Neck: Mild atherosclerotic change at the right carotid bifurcation. No hemodynamic significant carotid stenosis on either side. Mild atherosclerotic narrowing at the orgin the bilateral vertebral arteries (Dominique Warren) Critical Care Time Critical Care Time: Yes Total Critical Care Time: 45 <Dwight Witt - Last Filed: 04/01/22 14:46> Disposition Is patient prescribed a controlled substance at d/c from ED?: No Time of Disposition: 17:46 - Out of Hospital Transfer - Req. Specs Out of Hospital Transfer - Requested Specifics: Other Emergency Center <Dominique Warren - Last Filed: 03/31/22 17:46> <Dwight Witt - Last Filed: 04/01/22 14:46> Clinical Impression: Subarachnoid hemorrhage Disposition: OTHER INSTITUTION NOT DEFINED Condition: Serious Referrals: Regan Cruz MD [Primary Care Provider] - 1-2 days
[2022-03-31 12:49] LABS: Basophils # (A) 0.1 k/uL (0-0.2); Basophils % (A) 1 %; Eosinophils # (A) 0.2 k/uL (0-0.7); Eosinophils % (A) 1 %; HCT 50.1 % (39.0-53.0); HGB 16.9 gm/dL (13.0-17.5); Lymphocytes # (A) 1.4 k/uL (1.0-4.8); Lymphocytes % (A) 12 %; MCH 33.5 pg (25.0-35.0); MCHC 33.7 g/dL (31.0-37.0); MCV 99.7 fL (80.0-100.0); Mean Platelet Volume 7.6; Monocytes # (A) 0.8 k/uL (0-1.0); Monocytes % (A) 7 %; Neutrophils # (A) 8.9 k/uL (1.3-7.7); Neutrophils % (A) 78 %; Platelet Count 167 k/uL (150-450); RBC 5.02 m/uL (4.30-5.90); RDW 12.6 % (11.5-15.5); WBC 11.4 k/uL (3.8-10.6)
[2022-03-31 12:58] LABS: Calcium 9.7 mg/dL (8.4-10.2); Potassium 4.6 mmol/L (3.5-5.1)
[2022-03-31 13:30] LABS: Appearance,Urine Clear (Clear); Bilirubin,Urine Negative (Negative); Blood,Urine Moderate (Negative); Color,Urine Yellow; Glucose,Urine (UA) Trace (Negative); Ketones,Urine Negative (Negative); Leukocyte Esterase,Urine Negative (Negative); Mucus,Urine Few /hpf; Nitrite,Urine Negative (Negative); PH, Urine 5.5 (5.0-8.0); Protein,Urine Trace (Negative); RBC,Urine 4 /hpf (0-5); Specific Gravity,Urine 1.027 (1.001-1.035); Urobilinogen,Urine <2.0 mg/dL (<2.0); WBC,Urine 2 /hpf (0-5)
[2022-03-31] MEDS ORDERED: PHYTONADIONE 10 MG in SODIUM CHLORIDE 0.9% 50 ML IVPB STA ×2 (13:38→14:01)
--- NOTE | 2022-03-31 13:43 | CT ---
EXAMINATION TYPE: CT brain wo con DATE OF EXAM: 03/31/2022 COMPARISON: MRI 07/10/2021 HISTORY: 81-year-old male altered mental status, confusion from baseline. TECHNIQUE: Examination was done in axial plane without intravenous contrast. Coronal and sagittal r econstructions performed. CT DLP: 1188.4 mGycm Automated exposure control for dose reduction was used. FINDINGS: There is a very large medial right frontal lobe intraparenchymal hematoma measuring up to 5.6 cm AP b y 2.8 cm wide by 4.8 cm craniocaudal. Associated surrounding vasogenic edema. Focal mass effect onto the anterior falx resulting in 1.1 cm a focal leftward midline shift and some associated subfalcine h erniation. Effacement of the frontal horn of the right lateral ventricle. Some mild intraventricular extension of hemorrhage with blood layering in the occipital horn on the r ight and extending into the third ventricle and fourth ventricle. No ingrid hydrocephalus. Additional scattered subarachnoid hemorrhage along the falx. No effacement of basal subarachnoid cisterns. Moderate mucosal thickening ethmoid air cells. Mastoid air cells well pneumatized. IMPRESSION: 1. Large medial right frontal lobe intraparenchymal hematoma measuring up to 5.6 cm. Surrounding vaso genic edema and focal mass effect onto the anterior falx resulting in 1.1 cm of focal leftward midlin e shift and associated subfalcine herniation. 2. Mass effect effacing the frontal horn of the right lateral ventricle. 3. Additional subarachnoid hemorrhage along the falx and some intraventricular extension into the thi rd ventricle, fourth ventricle, and layering in the occipital horn on the right. Findings discussed with Dr. Witt over the phone at 1:35 PM.
[2022-03-31] MEDS ORDERED: DEXAMETHASONE SOD PHOSPHATE 10 MG/ML 1 ML VIAL IVP STA (13:49)
[2022-03-31] MEDS ORDERED: Kcentra PER PHARMACY 1 EACH MISC MISCELLANE PRN ×2 (13:58→15:31)
[2022-03-31] MEDS ORDERED: HUMAN PROTHROMBIN COMPLX IV ONE ×2 (14:00→15:45)
[2022-03-31 14:21] LABS: INR 2.4 (<1.2); Partial Thromboplastin Time 34.7 sec (22.0-30.0); Prothrombin Time 24.2 sec (9.0-12.0)
--- NOTE | 2022-03-31 14:40 | CT ---
EXAMINATION TYPE: CT angio head neck DATE OF EXAM: 03/31/2022 COMPARISON: CT brain same day HISTORY: 81-year-old male with confusion, AMS from baseline. Pt possible TIA yesterday, was deviating in behavior from normal. Hx TIAs. TECHNIQUE: Contiguous axial scanning of the head and neck performed with IV Contrast, patient injecte d with 65 mL of Isovue 370. Coronal/sagittal MIP reconstructions performed. CT DLP: 469.4 mGycm Automated exposure control for dose reduction was used. FINDINGS: Brain: Bilateral symmetric narrowing V4 segment left vertebral artery. Minimal atelectatic irregularity V4 s egment right vertebral artery. Segmental mild atherosclerotic narrowing distal basilar artery. [employer] ior circulation is otherwise patent. The internal carotid arteries and the bilateral middle cerebral artery branches are patent. The anterior cerebral arteries are also patent. Leftward deviation of the A2 and a 3 segments due to the patient's medial right frontal lobe bleed. This is discussed separately. No discrete aneurysm is identified. NECK: Conventional arch vessel branching anatomy. Mild atherosclerotic narrowing of the bilateral proximal vertebral arteries. Vertebral arteries are otherwise patent throughout the course. The right common carotid artery is patent. Mild atherosclerotic calcification at the right carotid bi furcation. No significant stenosis of the right ICA. Left common and internal carotid artery are patent. No significant stenosis. IMPRESSION: 1. BRAIN: SCATTERED MILD ATHEROSCLEROTIC NARROWING WITHIN THE VERTEBRAL AND BASILAR ARTERIES. THERE I S LEFTWARD DEVIATION OF A2 AND A3 SEGMENTS OF THE ANTERIOR CEREBRAL ARTERY DUE TO THE PATIENT'S LARGE RIGHT FRONTAL LOBE HEMATOMA. HOWEVER, NO SIGNIFICANT STENOSIS OR ANEURYSMAL CHANGE IS IDENTIFIED. 2. NECK: MILD ATHEROSCLEROTIC CHANGE AT THE RIGHT CAROTID BIFURCATION. NO HEMODYNAMICALLY SIGNIFICANT CAROTID STENOSIS ON EITHER SIDE. MILD ATHEROSCLEROTIC NARROWING AT THE ORIGIN OF THE BILATERAL VERTE BRAL ARTERIES.
[2022-03-31] MEDS ORDERED: niCARdipine 20 MG in SODIUM CHLORIDE 0.9% 192 ML IV SCH (15:00)
[2022-03-31] MEDS ORDERED: levETIRAcetam IV 1,000 MG in SALINE 1 100ML.BAG IVPB STA (15:35)
[2022-03-31 19:51] VITALS: BP 129/80; PULSE 97
[2022-03-31 20:48] VITALS: TEMP 98
== END 2022-03-31 18:00 | disposition other institution (70) ==
LOC: EC 10:42
DX: I60.9 Nontraumatic subarachnoid hemorrhage, unspecified (principal); I10 Essential (primary) hypertension; Z86.73 Personal history of transient ischemic attack (TIA), and cerebral infarction without residual deficits; Z82.49 Family history of ischemic heart disease and other diseases of the circulatory system
CPT/HCPCS: 96365 ×2; 96375 ×2; 99291 ×2; 36415; 93005; 86900; 86901; 80048; 85025; 85610; 85730; 86850; 81001; 70496; 70450; 70498; J3430; J1100; J7168; J1953; Q9967